=== PATIENT | female | born 1985 | race Caucasian/White ===

== ENCOUNTER 2016-12-12 06:57 | Inpatient (IN) | payer BC ==
[2016-12-12] VITALS (10 sets, daily range): BP systolic 87–117; BP diastolic 48–64
[~2016-12-12] VITALS: Ht 182.9 cm; Wt 86.2 kg
[~2016-12-12 06:57] MED LIST: [UNRECOGNIZED DRUG - OTHER]
[2016-12-12] MEDS ORDERED: ENDOCET 5-3251 EACH PO (08:55)
[2016-12-12] MEDS ORDERED: IBUPROFEN800 MG PO (08:55)
[2016-12-12 19:14] LABS: AMPHETAMINES QUANT VALUE 0 NG/ML; BARBITUATES QUANT VALUE 0 NG/ML; BENZODIAZEPINES QUANT VALUE 0 NG/ML; BENZODIAZEPINES, URINE SCREEN Negative (200 ng/mL); MARIJUANA QUANT VALUE 0 NG/ML; OPIATES QUANTITATIVE VALUE 0 NG/ML; PHENCYCLIDINE QUANT VALUE 0 NG/ML
[2016-12-13 03:53] VITALS: BP 91/51
[2016-12-13 06:12] LABS: EOSINOPHIL (%) 0.2 % (0-5); HEMATOCRIT 26.7 % (36.0-46.0); IMMATURE GRANULOCYTE (%) 0.3 % (0.0-0.7); MCH 30.4 PG (29.0-34.0); MCHC 33.7 G/DL (30.0-36.0); MCV 90.2 FL (83-99); MEAN PLAT.VOLUME 11.2 uM^3 (9.5-12.4); MONOCYTE (%) 14.7 % (3-12); MONOCYTE COUNT 1.4 K/uL (0-0.8); NEUTROPHIL (%) 74.4 % (45-76); NEUTROPHIL COUNT 7.3 K/uL (1.8-6.4); PLATELET COUNT 110 K/uL (156-360); RBC DIS.WIDTH-CV 13.4 % (11.8-14.6); RBC DIS.WIDTH-SD 43.3 % (39-53)
[2016-12-13 06:39] LABS: RED BLOOD COUNT 2.96 M/uL (3.80-5.20); WHITE BLOOD COUNT 9.8 K/uL (4.1-10.2)
[2016-12-13 07:35] VITALS: BP 102/60
[2016-12-13 10:53] VITALS: BP 83/42
[2016-12-13 15:04] VITALS: BP 102/58
[2016-12-13 19:31] VITALS: BP 98/55
[2016-12-13 23:10] VITALS: BP 102/50
[2016-12-14 03:27] VITALS: BP 120/75
[2016-12-14 07:35] VITALS: BP 97/52
[2016-12-14 14:42] VITALS: BP 116/62
[2016-12-14 23:04] VITALS: BP 100/55
[2016-12-15 08:02] VITALS: BP 108/55
[2016-12-15] MEDS ORDERED: IRON325 MG PO (12:31)
== END 2016-12-15 16:04 | disposition home or self-care (01) | DRG 765 ==
LOC: 2WEST 06:57 → 2SOUTH 09:55 → 2WEST 12-15 16:04
PROVIDERS: Nurse Practitioner; Obstetrics & Gynecology
PROC: 10D00Z1 Extraction of Products of Conception, Low, Open Approach (ICD-10-PCS; principal; 2016-12-12)
DX: O34.211 Maternal care for low transverse scar from previous cesarean delivery (principal); D62 Acute posthemorrhagic anemia; O90.81 Anemia of the puerperium; O34.593 Maternal care for other abnormalities of gravid uterus, third trimester; N85.8 Other specified noninflammatory disorders of uterus; Z3A.40 40 weeks gestation of pregnancy; Z37.0 Single live birth
CPT/HCPCS: 36415; 80306 90; 85025; 86850; 86870; 86900; 86901; 86905; 86920; 86999; J0690; J2274; J7120